=== PATIENT | female | born 1980 | race Caucasian/White ===

== ENCOUNTER 2018-09-10 09:14 | Emergency (ER) | payer SELFPAY ==
[~2018-09-10] VITALS: Ht 160 cm; Wt 59.0 kg
[2018-09-10 09:16] VITALS: Ht 160 cm; Wt 59.0 kg
[2018-09-10 10:04] LABS: AMPHETAMINE QUAL UR NONE DETECTED (See below)
[2018-09-10 10:39] LABS: BASOPHIL % 0.3 % (0-2); RED CELL DISTRIBUTION WIDTH 13.6 % (11.5-14.5)
[2018-09-10 10:47] LABS: PLATELET COUNT 407 x10^3mcL (130-400)
[2018-09-10 11:06] LABS: CALCIUM 9.4 mg/dL (8.5-10.1); CARBON DIOXIDE 23.9 mmol/L (21-32); CHLORIDE SERUM 103 mmol/L (98-107); CREATININE SERUM 0.7 mg/dL (0.6-1.0); GFR1 > 60 mL/min; GLUCOSE SERUM 99 mg/dL (74-106); POTASSIUM SERUM 3.9 mmol/L (3.5-5.1); SODIUM SERUM 138 mmol/L (136-145)
[2018-09-10 11:11] LABS: ALBUMIN 3.5 g/dL (3.4-5.0); ALKALINE PHOSPHATASE 93 U/L (46-116); ALT/SGPT 31 U/L (14-59); AST/SGOT 19 U/L (15-37); TOTAL PROTEIN, SERUM 7.5 g/dL (6.4-8.2)
[2018-09-10 11:31] VITALS: BP 105/68
== END 2018-09-10 11:31 | disposition home or self-care (01) ==
LOC: ED 09:14
PROVIDERS: Emergency Medicine
DX: R41.82 Altered mental status, unspecified (principal)
CPT/HCPCS: 36415